=== PATIENT | female | born 1955 | race Caucasian/White ===

== ENCOUNTER 2018-02-27 20:37 | Inpatient (IN) | payer OTHER ==
[2018-02-27] MEDS ORDERED: morphine 2 MG INJ IV (22:00)
[2018-02-27] MEDS ORDERED: NACL 0.9% 3 ML SYG IV (22:00)
[2018-02-27 22:09] LABS: ADD MAN DIFF? NO
[2018-02-27 22:14] LABS: BASOPHILS % 0.2 % (0.0-2.0); HEMATOCRIT 38.2 % (37.0-47.0); LYMPHOCYTES # 1.3 10^3/ul (0.8-2.9); LYMPHOCYTES % 9.6 % (15.0-51.0); MEAN CORPUSCULAR HEMOGLOBIN 29.1 pg (29.0-33.0); MEAN CORPUSCULAR HGB CONC 31.4 g/dl (32.0-37.0); MEAN CORPUSCULAR VOLUME 92.5 fl (82.0-101.0); MEAN PLATELET VOLUME 12.1 fl (7.4-10.4); MONOCYTE # 0.7 10^3/ul (0.3-0.9); MONOCYTES % 5.1 % (0.0-11.0); NEUTROPHIL # 11.2 10^3/ul (1.6-7.5); NEUTROPHILS % 84.7 % (39.0-77.0); PLATELET COUNT 305 10^3/UL (140-415); RED BLOOD COUNT 4.13 10^6/ul (4.20-5.40); RED CELL DISTRIBUTION WIDTH 13.4 % (11.5-14.5)
[2018-02-27 22:14] LABS: WHITE BLOOD COUNT 13.3 10^3/ul (4.8-10.8)
[2018-02-27 22:28] LABS: HEMOGLOBIN A1C 10.5 % (0-5.9)
[2018-02-27 22:30] LABS: ALANINE AMINOTRANSFERASE 26 IU/L (13-69); ALBUMIN 3.5 g/dl (3.3-4.9); ALBUMIN/GLOBULIN RATIO 0.83; ALKALINE PHOSPHATASE 149 IU/L (42-121); ANION GAP 17 (8-16); ASPARTATE AMINO TRANSFERASE 14 IU/L (15-46); BILIRUBIN,INDIRECT 0.3 mg/dl (0-1.1); BILIRUBIN,TOTAL 0.3 mg/dl (0.2-1.3); BLOOD UREA NITROGEN 44 mg/dl (7-20); CALCIUM 9.4 mg/dl (8.4-10.2); CARBON DIOXIDE 27 mmol/L (21-31); CHLORIDE 100 mmol/L (97-110); CREATININE 1.52 mg/dl (0.44-1.00); GLUCOSE 394 mg/dl (70-220); POTASSIUM 4.6 mmol/L (3.5-5.1); SODIUM 139 mmol/L (135-144); TOTAL PROTEIN 7.7 g/dl (6.1-8.1)
[2018-02-27] MEDS ORDERED: PANTOPRAZOLE 40 MG INJ IV ×2 (22:30)
[2018-02-27] MEDS ORDERED: DEXTROSE 50% 50 ML SYRINGE IV ×2 (22:30)
[2018-02-27] MEDS ORDERED: GLUCOSE GEL 15 GRAM TUBE BUCCAL (22:30)
[2018-02-27] MEDS ORDERED: GLUCOSE GEL 15 GRAM TUBE PO ×2 (22:30)
[2018-02-27] MEDS ORDERED: GLUCAGON 1 MG INJ IM (22:30)
[2018-02-27 22:31] LABS: CHOL/HDL RATIO 2.7 RATIO; CHOLESTEROL 180 mg/dl (100-200); HDL CHOLESTEROL 65 mg/dl (35-98); LDL CHOLESTEROL,CALCULATED 89 mg/dl; MAGNESIUM 2.1 mg/dl (1.7-2.5); TRIGLYCERIDES 130 mg/dl (0-149)
[2018-02-27 22:31] LABS: PHOSPHORUS 5.8 mg/dl (2.5-4.9)
[2018-02-27] MEDS: SOD CHLORIDE 0.9% 1,000 ML IV (22:56)
[2018-02-27 23:00] LABS: THYROID STIMULATING HORMONE 0.557 MIU/L (0.465-4.680)
[2018-02-27] MEDS: PANTOPRAZOLE 40 MG INJ IV (23:02)
[2018-02-28] MEDS: INSULIN ASPART [NOVOLOG] 3 ML PEN SC ×6 (00:23→21:26)
[2018-02-28] MEDS ORDERED: INSULIN ASPART [NOVOLOG] 3 ML PEN SC (01:00)
[2018-02-28] MEDS: ONDANSETRON 4 MG INJ IV ×3 (01:23→16:00)
[2018-02-28] MEDS: INSULIN GLARGINE [LANTus] (100 UNITS/ML) SYG SC ×2 (01:28→12:52)
[2018-02-28 03:20] LABS: ADD MAN DIFF? NO
[2018-02-28 03:24] LABS: WHITE BLOOD COUNT 15.4 10^3/ul (4.8-10.8)
[2018-02-28 03:24] LABS: BASOPHILS % 0.1 % (0.0-2.0); HEMATOCRIT 34.5 % (37.0-47.0); LYMPHOCYTES # 1.6 10^3/ul (0.8-2.9); LYMPHOCYTES % 10.1 % (15.0-51.0); MEAN CORPUSCULAR HEMOGLOBIN 29.3 pg (29.0-33.0); MEAN CORPUSCULAR HGB CONC 31.9 g/dl (32.0-37.0); MEAN CORPUSCULAR VOLUME 91.8 fl (82.0-101.0); MEAN PLATELET VOLUME 11.7 fl (7.4-10.4); MONOCYTES % 6.6 % (0.0-11.0); NEUTROPHIL # 12.8 10^3/ul (1.6-7.5); NEUTROPHILS % 82.9 % (39.0-77.0); PLATELET COUNT 286 10^3/UL (140-415); RED BLOOD COUNT 3.76 10^6/ul (4.20-5.40); RED CELL DISTRIBUTION WIDTH 13.7 % (11.5-14.5)
[2018-02-28] MEDS ORDERED: PANTOPRAZOLE 40 MG INJ IV ×2 (06:00)
[2018-02-28] MEDS: PANTOPRAZOLE 40 MG INJ IV ×2 (08:57→17:15)
[2018-02-28] MEDS: SUCRALFATE 1 GM TAB PO ×4 (09:01→23:49)
[2018-02-28 09:35] LABS: ADD MAN DIFF? NO
[2018-02-28 09:36] LABS: BASOPHILS % 0.2 % (0.0-2.0); HEMATOCRIT 36.1 % (37.0-47.0); HEMOGLOBIN 11.5 g/dl (12.0-16.0); LYMPHOCYTES # 1.4 10^3/ul (0.8-2.9); LYMPHOCYTES % 9.2 % (15.0-51.0); MEAN CORPUSCULAR HEMOGLOBIN 29.3 pg (29.0-33.0); MEAN CORPUSCULAR HGB CONC 31.9 g/dl (32.0-37.0); MEAN CORPUSCULAR VOLUME 92.1 fl (82.0-101.0); MEAN PLATELET VOLUME 11.9 fl (7.4-10.4); MONOCYTE # 0.7 10^3/ul (0.3-0.9); MONOCYTES % 4.7 % (0.0-11.0); NEUTROPHIL # 12.9 10^3/ul (1.6-7.5); NEUTROPHILS % 85.5 % (39.0-77.0); PLATELET COUNT 280 10^3/UL (140-415); RED BLOOD COUNT 3.92 10^6/ul (4.20-5.40); RED CELL DISTRIBUTION WIDTH 13.5 % (11.5-14.5)
[2018-02-28 09:36] LABS: WHITE BLOOD COUNT 15.1 10^3/ul (4.8-10.8)
[2018-02-28] MEDS ORDERED: DIPHENHYDRAMINE 50 MG INJ IV (11:00)
[2018-02-28] MEDS: SOD CHLORIDE 0.9% 1,000 ML IV ×2 (11:55→22:35)
[2018-02-28] MEDS: METOCLOPRAMIDE 10 MG INJ IV ×3 (11:55→23:49)
[2018-02-28] MEDS: CEFTRIAXONE 1 GM/50 ML (PMX) 50 ML IVPB (11:55)
[2018-02-28 12:00] LABS: ALANINE AMINOTRANSFERASE 19 IU/L (13-69); ALBUMIN 3.2 g/dl (3.3-4.9); ALBUMIN/GLOBULIN RATIO 0.76; ALKALINE PHOSPHATASE 131 IU/L (42-121); ANION GAP 14 (8-16); ASPARTATE AMINO TRANSFERASE 18 IU/L (15-46); BILIRUBIN,INDIRECT 0.3 mg/dl (0-1.1); BILIRUBIN,TOTAL 0.3 mg/dl (0.2-1.3); BLOOD UREA NITROGEN 43 mg/dl (7-20); CALCIUM 8.7 mg/dl (8.4-10.2); CARBON DIOXIDE 26 mmol/L (21-31); CHLORIDE 103 mmol/L (97-110); CREATININE 1.14 mg/dl (0.44-1.00); GLUCOSE 283 mg/dl (70-220); POTASSIUM 3.8 mmol/L (3.5-5.1); SODIUM 139 mmol/L (135-144); TOTAL PROTEIN 7.4 g/dl (6.1-8.1)
[2018-02-28 12:06] LABS: INR 0.99; PROTIME 13.2 Sec (11.9-14.9)
[2018-02-28 12:07] LABS: PARTIAL THROMBOPLASTIN TIME 30.9 Sec (23.0-35.0)
[2018-02-28 14:12] LABS: ADD UMIC YES; UR ASCORBIC ACID NEGATIVE (NEGATIVE); UR BACTERIA FEW /HPF (NONE SEEN); UR BILIRUBIN (Dip) NEGATIVE (NEGATIVE); UR BLOOD (Dip) 3+ mg/dL (NEGATIVE); UR CLARITY SLIGHTLY CLOUDY (CLEAR); UR COLOR YELLOW (YELLOW); UR GLUCOSE (Dip) 3+ mg/dL (NEGATIVE); UR KETONES (Dip) TRACE mg/dL (NEGATIVE); UR LEUKOCYTE ESTERASE (Dip) TRACE Leu/ul (NEGATIVE); UR NITRITE (Dip) NEGATIVE (NEGATIVE); UR RBC 143 /HPF (0-5); UR SPECIFIC GRAVITY (Dip) 1.015 (1.003-1.030); UR SQUAMOUS EPITHELIAL CELL FEW /HPF (FEW); UR TOTAL PROTEIN (Dip) 2+ mg/dl (NEGATIVE); UR UROBILINOGEN (Dip) NEGATIVE (NEGATIVE); UR WBC 69 /HPF (0-5)
[2018-02-28 14:39] LABS: AMPHETAMINE/METHAMPHETAMINE Negative (NEGATIVE); BENZODIAZEPINES Negative (NEGATIVE); CANNABINOIDS Negative (NEGATIVE); COCAINE Negative (NEGATIVE); OPIATES Negative (NEGATIVE)
[2018-02-28 14:57] LABS: BARBITURATES Negative (NEGATIVE)
[2018-02-28] MEDS: PROPOFOL 20 ML (16:14)
[2018-02-28] MEDS: hydrALAzine 20 MG INJ IV (17:16)
[2018-02-28 17:54] LABS: ADD MAN DIFF? NO
[2018-02-28 17:57] LABS: WHITE BLOOD COUNT 15.8 10^3/ul (4.8-10.8)
[2018-02-28 17:57] LABS: BASOPHILS % 0.3 % (0.0-2.0); HEMOGLOBIN 11.7 g/dl (12.0-16.0); LYMPHOCYTES # 1.7 10^3/ul (0.8-2.9); LYMPHOCYTES % 10.5 % (15.0-51.0); MEAN CORPUSCULAR HEMOGLOBIN 29.5 pg (29.0-33.0); MEAN CORPUSCULAR HGB CONC 31.6 g/dl (32.0-37.0); MEAN CORPUSCULAR VOLUME 93.2 fl (82.0-101.0); MEAN PLATELET VOLUME 11.9 fl (7.4-10.4); MONOCYTE # 0.9 10^3/ul (0.3-0.9); MONOCYTES % 5.5 % (0.0-11.0); NEUTROPHIL # 13.2 10^3/ul (1.6-7.5); NEUTROPHILS % 83.3 % (39.0-77.0); PLATELET COUNT 289 10^3/UL (140-415); RED BLOOD COUNT 3.97 10^6/ul (4.20-5.40); RED CELL DISTRIBUTION WIDTH 13.4 % (11.5-14.5)
[2018-02-28 22:29] LABS: ADD MAN DIFF? NO
[2018-02-28 22:31] LABS: WHITE BLOOD COUNT 14.2 10^3/ul (4.8-10.8)
[2018-02-28 22:31] LABS: BASOPHILS % 0.2 % (0.0-2.0); EOSINOPHILS % 0.1 % (0.0-7.0); HEMATOCRIT 36.1 % (37.0-47.0); HEMOGLOBIN 11.3 g/dl (12.0-16.0); LYMPHOCYTES # 1.4 10^3/ul (0.8-2.9); LYMPHOCYTES % 9.8 % (15.0-51.0); MEAN CORPUSCULAR HEMOGLOBIN 29.2 pg (29.0-33.0); MEAN CORPUSCULAR HGB CONC 31.3 g/dl (32.0-37.0); MEAN CORPUSCULAR VOLUME 93.3 fl (82.0-101.0); MONOCYTE # 0.6 10^3/ul (0.3-0.9); MONOCYTES % 3.9 % (0.0-11.0); NEUTROPHIL # 12.2 10^3/ul (1.6-7.5); NEUTROPHILS % 85.4 % (39.0-77.0); PLATELET COUNT 298 10^3/UL (140-415); RED BLOOD COUNT 3.87 10^6/ul (4.20-5.40); RED CELL DISTRIBUTION WIDTH 13.4 % (11.5-14.5)
[2018-03-01] MEDS: INSULIN ASPART [NOVOLOG] 3 ML PEN SC ×2 (01:42→06:01)
[2018-03-01] MEDS: SOD CHLORIDE 0.9% 1,000 ML IV (02:31)
[2018-03-01 05:16] LABS: ADD MAN DIFF? NO
[2018-03-01 05:22] LABS: WHITE BLOOD COUNT 12.9 10^3/ul (4.8-10.8)
[2018-03-01 05:22] LABS: BASOPHILS % 0.2 % (0.0-2.0); EOSINOPHILS % 0.1 % (0.0-7.0); HEMOGLOBIN 12.1 g/dl (12.0-16.0); LYMPHOCYTES # 2.1 10^3/ul (0.8-2.9); MEAN CORPUSCULAR HEMOGLOBIN 28.9 pg (29.0-33.0); MEAN CORPUSCULAR VOLUME 93.3 fl (82.0-101.0); MEAN PLATELET VOLUME 11.8 fl (7.4-10.4); MONOCYTE # 0.7 10^3/ul (0.3-0.9); MONOCYTES % 5.1 % (0.0-11.0); NEUTROPHILS % 77.9 % (39.0-77.0); PLATELET COUNT 311 10^3/UL (140-415); RED BLOOD COUNT 4.18 10^6/ul (4.20-5.40); RED CELL DISTRIBUTION WIDTH 13.5 % (11.5-14.5)
[2018-03-01 05:36] LABS: ALANINE AMINOTRANSFERASE 11 IU/L (13-69); ALBUMIN 3.3 g/dl (3.3-4.9); ALBUMIN/GLOBULIN RATIO 0.75; ALKALINE PHOSPHATASE 131 IU/L (42-121); ANION GAP 13 (8-16); ASPARTATE AMINO TRANSFERASE 22 IU/L (15-46); BILIRUBIN,INDIRECT 0.3 mg/dl (0-1.1); BILIRUBIN,TOTAL 0.3 mg/dl (0.2-1.3); BLOOD UREA NITROGEN 35 mg/dl (7-20); CALCIUM 8.8 mg/dl (8.4-10.2); CARBON DIOXIDE 28 mmol/L (21-31); CHLORIDE 102 mmol/L (97-110); CREATININE 1.13 mg/dl (0.44-1.00); GLUCOSE 204 mg/dl (70-220); POTASSIUM 3.7 mmol/L (3.5-5.1); SODIUM 139 mmol/L (135-144); TOTAL PROTEIN 7.7 g/dl (6.1-8.1)
[2018-03-01 05:45] LABS: PHOSPHORUS 3.7 mg/dl (2.5-4.9)
[2018-03-01 05:45] LABS: MAGNESIUM 2.2 mg/dl (1.7-2.5)
[2018-03-01 05:46] LABS: LACTIC ACID 1.2 mmol/L (0.5-2.0)
[2018-03-01] MEDS: PANTOPRAZOLE 40 MG INJ IV ×2 (05:57→18:23)
[2018-03-01] MEDS: METOCLOPRAMIDE 10 MG INJ IV ×3 (05:57→18:23)
[2018-03-01] MEDS: SUCRALFATE 1 GM TAB PO ×3 (05:57→18:23)
[2018-03-01] MEDS ORDERED: ALBUTEROL 0.083% (NEB) 2.5 MG/3 ML AMP HHN (09:00)
[2018-03-01] MEDS ORDERED: CEPASTAT LOZENGE MT (09:30)
[2018-03-01] MEDS ORDERED: INSULIN ASPART [NOVOLOG] 3 ML PEN SC (11:10)
[2018-03-01] MEDS: LISINOPRIL 5 MG TAB PO (11:37)
[2018-03-01] MEDS: CEFTRIAXONE 1 GM/50 ML (PMX) 50 ML IVPB (11:37)
[2018-03-01] MEDS: INSULIN GLARGINE [LANTus] (100 UNITS/ML) SYG SC (11:40)
[2018-03-01] MEDS: Insulin NOVOLOG SS MILD Algorithm (SS with meals and bedtime) SC ×4 (11:41→21:00)
[2018-03-02] MEDS: SUCRALFATE 1 GM TAB PO ×3 (00:32→13:12)
[2018-03-02] MEDS: METOCLOPRAMIDE 10 MG INJ IV ×4 (00:32→12:30)
[2018-03-02] MEDS: PANTOPRAZOLE 40 MG INJ IV (05:09)
[2018-03-02 05:31] LABS: ADD MAN DIFF? NO
[2018-03-02 05:33] LABS: BASOPHILS % 0.3 % (0.0-2.0); EOSINOPHILS % 0.3 % (0.0-7.0); HEMATOCRIT 35.6 % (37.0-47.0); HEMOGLOBIN 11.1 g/dl (12.0-16.0); LYMPHOCYTES % 18.4 % (15.0-51.0); MEAN CORPUSCULAR HGB CONC 31.2 g/dl (32.0-37.0); MONOCYTE # 0.8 10^3/ul (0.3-0.9); MONOCYTES % 7.5 % (0.0-11.0); NEUTROPHIL # 7.8 10^3/ul (1.6-7.5); NEUTROPHILS % 73.1 % (39.0-77.0); PLATELET COUNT 276 10^3/UL (140-415); RED BLOOD COUNT 3.83 10^6/ul (4.20-5.40); RED CELL DISTRIBUTION WIDTH 13.1 % (11.5-14.5)
[2018-03-02 05:33] LABS: WHITE BLOOD COUNT 10.7 10^3/ul (4.8-10.8)
[2018-03-02 05:53] LABS: MAGNESIUM 2.2 mg/dl (1.7-2.5)
[2018-03-02 05:53] LABS: PHOSPHORUS 3.2 mg/dl (2.5-4.9)
[2018-03-02 05:56] LABS: ALANINE AMINOTRANSFERASE 14 IU/L (13-69); ALBUMIN 2.7 g/dl (3.3-4.9); ALBUMIN/GLOBULIN RATIO 0.71; ALKALINE PHOSPHATASE 104 IU/L (42-121); ANION GAP 12 (8-16); ASPARTATE AMINO TRANSFERASE 18 IU/L (15-46); BILIRUBIN,INDIRECT 0.2 mg/dl (0-1.1); BILIRUBIN,TOTAL 0.2 mg/dl (0.2-1.3); BLOOD UREA NITROGEN 34 mg/dl (7-20); CALCIUM 8.6 mg/dl (8.4-10.2); CARBON DIOXIDE 28 mmol/L (21-31); CHLORIDE 101 mmol/L (97-110); CREATININE 1.14 mg/dl (0.44-1.00); GLUCOSE 201 mg/dl (70-220); POTASSIUM 3.7 mmol/L (3.5-5.1); SODIUM 137 mmol/L (135-144); TOTAL PROTEIN 6.5 g/dl (6.1-8.1)
[2018-03-02] MEDS: Insulin NOVOLOG SS MILD Algorithm (SS with meals and bedtime) SC ×2 (09:04→13:12)
[2018-03-02] MEDS: INSULIN GLARGINE [LANTus] (100 UNITS/ML) SYG SC (09:05)
[2018-03-02] MEDS: LISINOPRIL 5 MG TAB PO (09:07)
[2018-03-02] MEDS: CEFTRIAXONE 1 GM/50 ML (PMX) 50 ML IVPB (10:50)
[2018-03-02 12:07] LABS: ADD UMIC YES; UR ASCORBIC ACID NEGATIVE (NEGATIVE); UR BILIRUBIN (Dip) NEGATIVE (NEGATIVE); UR BLOOD (Dip) 3+ mg/dL (NEGATIVE); UR CLARITY CLOUDY (CLEAR); UR COLOR YELLOW (YELLOW); UR GLUCOSE (Dip) 2+ mg/dL (NEGATIVE); UR KETONES (Dip) TRACE mg/dL (NEGATIVE); UR LEUKOCYTE ESTERASE (Dip) 2+ Leu/ul (NEGATIVE); UR MUCUS FEW /HPF (NONE SEEN); UR NITRITE (Dip) NEGATIVE (NEGATIVE); UR RBC > 182 /HPF (0-5); UR SPECIFIC GRAVITY (Dip) 1.018 (1.003-1.030); UR TOTAL PROTEIN (Dip) 3+ mg/dl (NEGATIVE); UR URIC ACID CRYSTAL FEW /HPF (NONE SEEN); UR UROBILINOGEN (Dip) NEGATIVE (NEGATIVE); UR WBC 181 /HPF (0-5)
== END 2018-03-02 14:45 | disposition home or self-care (01) | DRG 378 ==
LOC: MS1 20:37
PROVIDERS: Family Medicine
PROC: 0DB98ZX Excision of Duodenum, Via Natural or Artificial Opening Endoscopic, Diagnostic (ICD-10-PCS; principal; 2018-02-28 14:30)
PROC: 0DB68ZX Excision of Stomach, Via Natural or Artificial Opening Endoscopic, Diagnostic (ICD-10-PCS; 2018-02-28 14:30)
PROC: 0DB58ZX Excision of Esophagus, Via Natural or Artificial Opening Endoscopic, Diagnostic (ICD-10-PCS; 2018-02-28 14:30)
DX: K92.0 Hematemesis (principal); N17.9 Acute kidney failure, unspecified; K29.70 Gastritis, unspecified, without bleeding; E11.9 Type 2 diabetes mellitus without complications; I10 Essential (primary) hypertension; N30.80 Other cystitis without hematuria; J44.9 Chronic obstructive pulmonary disease, unspecified; E66.9 Obesity, unspecified; R19.7 Diarrhea, unspecified; K21.0 Gastro-esophageal reflux disease with esophagitis; E78.5 Hyperlipidemia, unspecified; Z79.4 Long term (current) use of insulin; Z86.73 Personal history of transient ischemic attack (TIA), and cerebral infarction without residual deficits; Z68.35 Body mass index [BMI] 35.0-35.9, adult
CPT/HCPCS: 74176; 80053; 80061; 80307; 81001; 82962; 83036; 83605; 83735; 84100; 84443; 85025; 85610; 85730; 87086

== ENCOUNTER 2018-08-03 20:54 | Inpatient (IN) | payer OTHER ==
[2018-08-03] MEDS: DOCUSATE SODIUM 100 MG CAP PO (22:00)
[2018-08-03] MEDS ORDERED: ONDANSETRON 4 MG INJ IV (22:00)
[2018-08-03] MEDS ORDERED: AMOXICILLIN/CLAV 250 MG TAB PO ×2 (22:00→22:45)
[2018-08-03] MEDS: SENNA TAB PO (22:00)
[2018-08-03] MEDS ORDERED: oxyCODONE 5 MG TAB PO (22:00)
[2018-08-03] MEDS ORDERED: POLYETHYLENE GLYCOL 17 GM PACKET NGT (22:30)
[2018-08-03] MEDS: LABETALOL 200 MG TAB PO (22:49)
[2018-08-03] MEDS: HEPARIN 5,000 UNIT/1 ML VIAL SC (22:50)
[2018-08-03] MEDS: ACCU-CHEK XX (23:21)
[2018-08-03] MEDS ORDERED: GLUCOSE GEL 15 GRAM TUBE PO (23:30)
[2018-08-03] MEDS ORDERED: GLUCAGON 1 MG INJ IM (23:30)
[2018-08-03] MEDS ORDERED: GLUCOSE GEL 15 GRAM TUBE BUCCAL (23:30)
[2018-08-03] MEDS: AMOXICILLIN/CLAV 875 MG TAB PO (23:30)
[2018-08-03] MEDS ORDERED: DEXTROSE 50% 50 ML SYRINGE IV ×2 (23:30)
[2018-08-03] MEDS: INSULIN ASPART [NOVOLOG] 3 ML PEN SC (23:31)
[2018-08-04] MEDS ORDERED: BISACODYL 10 MG SUPP PR
[2018-08-04] MEDS ORDERED: PENDING SANTYL ORDER FOR WOUND CARE XX
[2018-08-04 01:19] LABS: ADD UMIC YES; UR ASCORBIC ACID NEGATIVE (NEGATIVE); UR BACTERIA FEW /HPF (NONE SEEN); UR BILIRUBIN (Dip) NEGATIVE (NEGATIVE); UR BLOOD (Dip) NEGATIVE (NEGATIVE); UR BUDDING YEAST MODERATE /HPF (NONE SEEN); UR CLARITY SLIGHTLY CLOUDY (CLEAR); UR COLOR STRAW (YELLOW); UR GLUCOSE (Dip) 3+ mg/dL (NEGATIVE); UR KETONES (Dip) NEGATIVE (NEGATIVE); UR LEUKOCYTE ESTERASE (Dip) TRACE Leu/ul (NEGATIVE); UR MUCUS FEW /HPF (NONE SEEN); UR NITRITE (Dip) NEGATIVE (NEGATIVE); UR NONSQUAMOUS EPITHELIAL CELL 1 /HPF (NONE SEEN); UR RBC 6 /HPF (0-5); UR SPECIFIC GRAVITY (Dip) 1.009 (1.003-1.030); UR SQUAMOUS EPITHELIAL CELL FEW /HPF (FEW); UR TOTAL PROTEIN (Dip) 2+ mg/dl (NEGATIVE); UR UROBILINOGEN (Dip) NEGATIVE (NEGATIVE); UR WBC 34 /HPF (0-5)
[2018-08-04] MEDS: ACCU-CHEK XX ×5 (02:00→21:06)
[2018-08-04] MEDS: LABETALOL 100 MG TAB PO (04:55)
[2018-08-04] MEDS: HEPARIN 5,000 UNIT/1 ML VIAL SC ×3 (06:28→22:44)
[2018-08-04] MEDS ORDERED: ACCU-CHEK XX ×2 (07:05→11:30)
[2018-08-04 07:24] LABS: ADD MAN DIFF? NO
[2018-08-04 07:29] LABS: WHITE BLOOD COUNT 8.7 10^3/ul (4.8-10.8)
[2018-08-04 07:29] LABS: BASOPHILS % 0.3 % (0.0-2.0); EOSINOPHILS # 0.4 10^3/ul (0.0-0.5); HEMATOCRIT 34.9 % (37.0-47.0); HEMOGLOBIN 10.6 g/dl (12.0-16.0); LYMPHOCYTES # 1.5 10^3/ul (0.8-2.9); LYMPHOCYTES % 16.9 % (15.0-51.0); MEAN CORPUSCULAR HGB CONC 30.4 g/dl (32.0-37.0); MEAN CORPUSCULAR VOLUME 95.4 fl (82.0-101.0); MEAN PLATELET VOLUME 10.5 fl (7.4-10.4); MONOCYTE # 0.6 10^3/ul (0.3-0.9); MONOCYTES % 7.2 % (0.0-11.0); NEUTROPHIL # 6.1 10^3/ul (1.6-7.5); NEUTROPHILS % 70.8 % (39.0-77.0); PLATELET COUNT 428 10^3/UL (140-415); RED BLOOD COUNT 3.66 10^6/ul (4.20-5.40)
[2018-08-04 07:44] LABS: HEMOGLOBIN A1C 8.9 % (0-5.9)
[2018-08-04 08:07] LABS: ALANINE AMINOTRANSFERASE 7 IU/L (13-69); ALBUMIN 2.7 g/dl (3.3-4.9); ALBUMIN/GLOBULIN RATIO 0.79; ALKALINE PHOSPHATASE 103 IU/L (42-121); ANION GAP 7 (5-13); ASPARTATE AMINO TRANSFERASE 16 IU/L (15-46); BILIRUBIN,INDIRECT 0.2 mg/dl (0-1.1); BILIRUBIN,TOTAL 0.2 mg/dl (0.2-1.3); BLOOD UREA NITROGEN 11 mg/dl (7-20); CALCIUM 8.3 mg/dl (8.4-10.2); CARBON DIOXIDE 29 mmol/L (21-31); CHLORIDE 102 mmol/L (97-110); CREATININE 1.31 mg/dl (0.44-1.00); Estimated GFR 41 mL/min (>60); GLUCOSE 303 mg/dl (70-220); POTASSIUM 4.1 mmol/L (3.5-5.1); SODIUM 138 mmol/L (135-144); TOTAL PROTEIN 6.1 g/dl (6.1-8.1)
[2018-08-04] MEDS: LINAGLIPTIN 5 MG TABLET PO (08:20)
[2018-08-04] MEDS: INSULIN ASPART [NOVOLOG] 3 ML PEN SC ×4 (08:20→21:00)
[2018-08-04] MEDS: INSULIN GLARGINE [LANTus] (100 UNITS/ML) SYG SC (08:28)
[2018-08-04] MEDS: AMOXICILLIN/CLAV 875 MG TAB PO ×2 (08:30→20:58)
[2018-08-04] MEDS: GABAPENTIN 300 MG CAP PO ×3 (08:39→20:58)
[2018-08-04] MEDS: DOCUSATE SODIUM 100 MG CAP PO ×2 (08:40→20:58)
[2018-08-04] MEDS: ASPIRIN 81 MG TAB PO (08:40)
[2018-08-04] MEDS: AMLODIPINE 10 MG TAB PO (08:40)
[2018-08-04] MEDS: ASCORBIC ACID 500 MG TAB PO (08:41)
[2018-08-04] MEDS: FAMOTIDINE 20 MG TAB PO (08:41)
[2018-08-04] MEDS: LACTOBACILLUS RHAMNOSUS CAP PO ×3 (08:41→20:58)
[2018-08-04] MEDS: FERROUS SULFATE (EC) 325 MG TAB PO (08:41)
[2018-08-04] MEDS: FOLIC ACID 1 MG TAB PO (08:41)
[2018-08-04] MEDS: LABETALOL 200 MG TAB PO ×3 (08:41→22:43)
[2018-08-04] MEDS ORDERED: AMOXICILLIN/CLAV 250 MG TAB PO (09:00)
[2018-08-04] MEDS: NYSTATIN 30 GM POWDER BTL TOP ×2 (09:47→20:59)
[2018-08-04] MEDS: HYDROmorphONE 0.5 MG/0.5 ML SYG IV ×3 (11:24→19:25)
[2018-08-04] MEDS: SENNA TAB PO (20:58)
[2018-08-04] MEDS: ATORVASTATIN 40 MG TAB PO (20:58)
[2018-08-05] MEDS: ACCU-CHEK XX ×5 (02:00→21:00)
[2018-08-05] MEDS: DIPHENHYDRAMINE 25 MG CAP PO (03:18)
[2018-08-05] MEDS: HEPARIN 5,000 UNIT/1 ML VIAL SC ×3 (06:49→21:01)
[2018-08-05] MEDS: LABETALOL 200 MG TAB PO ×3 (06:50→20:44)
[2018-08-05] MEDS: INSULIN ASPART [NOVOLOG] 3 ML PEN SC ×6 (08:30→20:54)
[2018-08-05] MEDS: LINAGLIPTIN 5 MG TABLET PO (08:30)
[2018-08-05] MEDS: GABAPENTIN 300 MG CAP PO ×3 (08:34→20:40)
[2018-08-05] MEDS: FOLIC ACID 1 MG TAB PO (08:35)
[2018-08-05] MEDS: ASPIRIN 81 MG TAB PO (08:35)
[2018-08-05] MEDS: AMLODIPINE 10 MG TAB PO (08:35)
[2018-08-05] MEDS: INSULIN GLARGINE [LANTus] (100 UNITS/ML) SYG SC (08:37)
[2018-08-05] MEDS: ASCORBIC ACID 500 MG TAB PO (08:37)
[2018-08-05] MEDS: LACTOBACILLUS RHAMNOSUS CAP PO ×3 (08:37→20:40)
[2018-08-05] MEDS: FAMOTIDINE 20 MG TAB PO (08:37)
[2018-08-05] MEDS: AMOXICILLIN/CLAV 875 MG TAB PO ×2 (08:37→20:40)
[2018-08-05] MEDS: FERROUS SULFATE (EC) 325 MG TAB PO (08:37)
[2018-08-05] MEDS: DOCUSATE SODIUM 100 MG CAP PO ×2 (09:00→21:00)
[2018-08-05] MEDS: NYSTATIN 30 GM POWDER BTL TOP ×2 (10:08→20:44)
[2018-08-05] MEDS: ATORVASTATIN 40 MG TAB PO (20:40)
[2018-08-05] MEDS: SENNA TAB PO (21:00)
[2018-08-06] MEDS: ACCU-CHEK XX ×5 (02:14→21:00)
[2018-08-06] MEDS: LABETALOL 200 MG TAB PO ×3 (05:42→22:00)
[2018-08-06] MEDS: HEPARIN 5,000 UNIT/1 ML VIAL SC ×3 (06:04→22:00)
[2018-08-06 07:24] LABS: ADD MAN DIFF? NO
[2018-08-06 07:30] LABS: BASOPHILS % 0.5 % (0.0-2.0); EOSINOPHILS # 0.4 10^3/ul (0.0-0.5); EOSINOPHILS % 5.4 % (0.0-7.0); HEMATOCRIT 35.9 % (37.0-47.0); LYMPHOCYTES # 1.6 10^3/ul (0.8-2.9); LYMPHOCYTES % 20.4 % (15.0-51.0); MEAN CORPUSCULAR HEMOGLOBIN 28.9 pg (29.0-33.0); MEAN CORPUSCULAR HGB CONC 30.6 g/dl (32.0-37.0); MEAN CORPUSCULAR VOLUME 94.5 fl (82.0-101.0); MEAN PLATELET VOLUME 10.2 fl (7.4-10.4); MONOCYTE # 0.6 10^3/ul (0.3-0.9); MONOCYTES % 7.3 % (0.0-11.0); NEUTROPHIL # 5.3 10^3/ul (1.6-7.5); NEUTROPHILS % 65.8 % (39.0-77.0); PLATELET COUNT 426 10^3/UL (140-415); RED CELL DISTRIBUTION WIDTH 15.1 % (11.5-14.5)
[2018-08-06 07:47] LABS: ANION GAP 8 (5-13); BLOOD UREA NITROGEN 18 mg/dl (7-20); CALCIUM 8.1 mg/dl (8.4-10.2); CARBON DIOXIDE 30 mmol/L (21-31); CHLORIDE 97 mmol/L (97-110); CREATININE 1.25 mg/dl (0.44-1.00); Estimated GFR 44 mL/min (>60); GLUCOSE 251 mg/dl (70-220); MAGNESIUM 1.7 mg/dl (1.7-2.5); PHOSPHORUS 4.6 mg/dl (2.5-4.9); POTASSIUM 3.8 mmol/L (3.5-5.1); SODIUM 135 mmol/L (135-144)
[2018-08-06] MEDS: INSULIN ASPART [NOVOLOG] 3 ML PEN SC ×7 (08:18→22:29)
[2018-08-06] MEDS: INSULIN GLARGINE [LANTus] (100 UNITS/ML) SYG SC (08:24)
[2018-08-06] MEDS: LINAGLIPTIN 5 MG TABLET PO (08:25)
[2018-08-06] MEDS: FAMOTIDINE 20 MG TAB PO (08:25)
[2018-08-06] MEDS: AMOXICILLIN/CLAV 875 MG TAB PO (08:25)
[2018-08-06] MEDS: ASCORBIC ACID 500 MG TAB PO (08:25)
[2018-08-06] MEDS: FOLIC ACID 1 MG TAB PO (08:25)
[2018-08-06] MEDS: LACTOBACILLUS RHAMNOSUS CAP PO ×3 (08:25→21:00)
[2018-08-06] MEDS: GABAPENTIN 300 MG CAP PO ×3 (08:25→21:00)
[2018-08-06] MEDS: FERROUS SULFATE (EC) 325 MG TAB PO (08:25)
[2018-08-06] MEDS: DOCUSATE SODIUM 100 MG CAP PO ×2 (08:26→21:00)
[2018-08-06] MEDS: NYSTATIN 30 GM POWDER BTL TOP ×2 (08:26→21:00)
[2018-08-06] MEDS: ASPIRIN 81 MG TAB PO (08:26)
[2018-08-06] MEDS: AMLODIPINE 10 MG TAB PO (09:00)
[2018-08-06] MEDS: ATORVASTATIN 40 MG TAB PO (21:00)
[2018-08-06] MEDS: SENNA TAB PO (21:00)
[2018-08-07] MEDS: ACCU-CHEK XX ×5 (02:45→21:00)
[2018-08-07] MEDS: LABETALOL 200 MG TAB PO ×3 (07:09→22:25)
[2018-08-07] MEDS: HEPARIN 5,000 UNIT/1 ML VIAL SC ×3 (07:12→22:21)
[2018-08-07] MEDS ORDERED: INSULIN GLARGINE [LANTus] (100 UNITS/ML) SYG SC (08:00)
[2018-08-07] MEDS: INSULIN ASPART [NOVOLOG] 3 ML PEN SC ×6 (08:53→20:48)
[2018-08-07] MEDS: GABAPENTIN 300 MG CAP PO ×3 (08:55→22:24)
[2018-08-07] MEDS: ASCORBIC ACID 500 MG TAB PO (08:55)
[2018-08-07] MEDS: LACTOBACILLUS RHAMNOSUS CAP PO ×3 (08:55→22:36)
[2018-08-07] MEDS: ASPIRIN 81 MG TAB PO (08:55)
[2018-08-07] MEDS: FOLIC ACID 1 MG TAB PO (08:55)
[2018-08-07] MEDS: FAMOTIDINE 20 MG TAB PO (08:55)
[2018-08-07] MEDS: FERROUS SULFATE (EC) 325 MG TAB PO (08:55)
[2018-08-07] MEDS: AMLODIPINE 10 MG TAB PO (08:56)
[2018-08-07] MEDS: LINAGLIPTIN 5 MG TABLET PO (08:56)
[2018-08-07] MEDS: DOCUSATE SODIUM 100 MG CAP PO ×2 (09:00→21:00)
[2018-08-07] MEDS: NYSTATIN 30 GM POWDER BTL TOP ×2 (09:01→22:30)
[2018-08-07] MEDS: ERGOCALCIFEROL 50,000 UNIT CAP PO (10:34)
[2018-08-07] MEDS: SENNA TAB PO (21:00)
[2018-08-07] MEDS: ATORVASTATIN 40 MG TAB PO (22:24)
[2018-08-08] MEDS: ACCU-CHEK XX ×5 (02:00→21:41)
[2018-08-08] MEDS: LABETALOL 200 MG TAB PO ×3 (08:00→21:46)
[2018-08-08] MEDS ORDERED: INSULIN GLARGINE [LANTus] (100 UNITS/ML) SYG SC (08:00)
[2018-08-08] MEDS: INSULIN ASPART [NOVOLOG] 3 ML PEN SC ×7 (08:02→21:40)
[2018-08-08] MEDS: HYDROmorphONE 0.5 MG/0.5 ML SYG IV ×3 (08:48→18:15)
[2018-08-08] MEDS: DOCUSATE SODIUM 100 MG CAP PO ×2 (08:55→21:00)
[2018-08-08] MEDS: GABAPENTIN 300 MG CAP PO ×3 (08:55→21:32)
[2018-08-08] MEDS: HEPARIN 5,000 UNIT/1 ML VIAL SC ×3 (08:55→21:47)
[2018-08-08] MEDS: FAMOTIDINE 20 MG TAB PO (08:56)
[2018-08-08] MEDS: LACTOBACILLUS RHAMNOSUS CAP PO ×3 (08:56→21:32)
[2018-08-08] MEDS: AMLODIPINE 10 MG TAB PO (08:56)
[2018-08-08] MEDS: ASCORBIC ACID 500 MG TAB PO (08:56)
[2018-08-08] MEDS: ASPIRIN 81 MG TAB PO (08:56)
[2018-08-08] MEDS: FOLIC ACID 1 MG TAB PO (08:56)
[2018-08-08] MEDS: FERROUS SULFATE (EC) 325 MG TAB PO (08:56)
[2018-08-08] MEDS: LINAGLIPTIN 5 MG TABLET PO (08:59)
[2018-08-08] MEDS: LISINOPRIL 10 MG TAB PO (09:30)
[2018-08-08] MEDS: NYSTATIN 30 GM POWDER BTL TOP ×2 (12:12→21:42)
[2018-08-08] MEDS: SENNA TAB PO (21:00)
[2018-08-08] MEDS: ATORVASTATIN 40 MG TAB PO (21:32)
[2018-08-09] MEDS: ACCU-CHEK XX ×5 (02:40→21:25)
[2018-08-09] MEDS: LABETALOL 200 MG TAB PO ×3 (06:46→22:36)
[2018-08-09] MEDS: HEPARIN 5,000 UNIT/1 ML VIAL SC ×3 (06:49→21:26)
[2018-08-09 07:28] LABS: ADD MAN DIFF? NO
[2018-08-09 07:33] LABS: WHITE BLOOD COUNT 7.2 10^3/ul (4.8-10.8)
[2018-08-09 07:33] LABS: BASOPHILS % 0.4 % (0.0-2.0); EOSINOPHILS # 0.5 10^3/ul (0.0-0.5); EOSINOPHILS % 6.9 % (0.0-7.0); HEMATOCRIT 32.8 % (37.0-47.0); HEMOGLOBIN 9.9 g/dl (12.0-16.0); LYMPHOCYTES # 1.8 10^3/ul (0.8-2.9); LYMPHOCYTES % 24.3 % (15.0-51.0); MEAN CORPUSCULAR HEMOGLOBIN 28.9 pg (29.0-33.0); MEAN CORPUSCULAR HGB CONC 30.2 g/dl (32.0-37.0); MEAN CORPUSCULAR VOLUME 95.9 fl (82.0-101.0); MEAN PLATELET VOLUME 10.6 fl (7.4-10.4); MONOCYTE # 0.8 10^3/ul (0.3-0.9); MONOCYTES % 10.4 % (0.0-11.0); NEUTROPHIL # 4.2 10^3/ul (1.6-7.5); NEUTROPHILS % 57.6 % (39.0-77.0); PLATELET COUNT 330 10^3/UL (140-415); RED BLOOD COUNT 3.42 10^6/ul (4.20-5.40); RED CELL DISTRIBUTION WIDTH 15.1 % (11.5-14.5)
[2018-08-09 08:04] LABS: ANION GAP 5 (5-13); BLOOD UREA NITROGEN 25 mg/dl (7-20); CALCIUM 8.6 mg/dl (8.4-10.2); CARBON DIOXIDE 32 mmol/L (21-31); CHLORIDE 104 mmol/L (97-110); CREATININE 1.53 mg/dl (0.44-1.00); Estimated GFR 35 mL/min (>60); GLUCOSE 188 mg/dl (70-220); MAGNESIUM 1.9 mg/dl (1.7-2.5); PHOSPHORUS 4.6 mg/dl (2.5-4.9); SODIUM 141 mmol/L (135-144)
[2018-08-09] MEDS: INSULIN ASPART [NOVOLOG] 3 ML PEN SC ×7 (08:19→21:00)
[2018-08-09] MEDS: INSULIN GLARGINE [LANTus] (100 UNITS/ML) SYG SC (08:21)
[2018-08-09] MEDS: HYDROmorphONE 0.5 MG/0.5 ML SYG IV ×3 (08:22→17:55)
[2018-08-09] MEDS: LACTULOSE 30ML CUP PO (09:30)
[2018-08-09] MEDS: DOCUSATE SODIUM 100 MG CAP PO ×2 (09:32→21:00)
[2018-08-09] MEDS: ASCORBIC ACID 500 MG TAB PO (09:32)
[2018-08-09] MEDS: AMLODIPINE 10 MG TAB PO (09:32)
[2018-08-09] MEDS: LISINOPRIL 10 MG TAB PO (09:33)
[2018-08-09] MEDS: FAMOTIDINE 20 MG TAB PO (09:33)
[2018-08-09] MEDS: FERROUS SULFATE (EC) 325 MG TAB PO (09:33)
[2018-08-09] MEDS: ASPIRIN 81 MG TAB PO (09:33)
[2018-08-09] MEDS: LABETALOL 100 MG TAB PO (09:33)
[2018-08-09] MEDS: FOLIC ACID 1 MG TAB PO (09:34)
[2018-08-09] MEDS: LACTOBACILLUS RHAMNOSUS CAP PO ×3 (09:34→22:36)
[2018-08-09] MEDS: NYSTATIN 30 GM POWDER BTL TOP ×2 (09:34→21:31)
[2018-08-09] MEDS: GABAPENTIN 300 MG CAP PO ×3 (09:42→21:21)
[2018-08-09] MEDS: LINAGLIPTIN 5 MG TABLET PO ×2 (09:42→10:24)
[2018-08-09] MEDS: SENNA TAB PO (21:00)
[2018-08-09] MEDS: oxyCODONE 5 MG TAB PO (21:20)
[2018-08-09] MEDS: ATORVASTATIN 40 MG TAB PO (21:20)
[2018-08-10] MEDS: ACCU-CHEK XX ×5 (02:00→21:00)
[2018-08-10] MEDS: HEPARIN 5,000 UNIT/1 ML VIAL SC ×3 (06:26→21:34)
[2018-08-10] MEDS: LABETALOL 200 MG TAB PO ×3 (06:26→21:39)
[2018-08-10] MEDS: HYDROmorphONE 0.5 MG/0.5 ML SYG IV ×3 (07:47→19:03)
[2018-08-10] MEDS: INSULIN ASPART [NOVOLOG] 3 ML PEN SC ×7 (07:54→21:00)
[2018-08-10] MEDS: INSULIN GLARGINE [LANTus] (100 UNITS/ML) SYG SC (07:56)
[2018-08-10] MEDS: LACTOBACILLUS RHAMNOSUS CAP PO ×3 (10:30→21:21)
[2018-08-10] MEDS: ASPIRIN 81 MG TAB PO (10:30)
[2018-08-10] MEDS: DOCUSATE SODIUM 100 MG CAP PO ×2 (10:30→21:00)
[2018-08-10] MEDS: GABAPENTIN 300 MG CAP PO ×3 (10:30→21:21)
[2018-08-10] MEDS: FERROUS SULFATE (EC) 325 MG TAB PO (10:30)
[2018-08-10] MEDS: AMLODIPINE 10 MG TAB PO (10:31)
[2018-08-10] MEDS: FAMOTIDINE 20 MG TAB PO (10:31)
[2018-08-10] MEDS: FOLIC ACID 1 MG TAB PO (10:31)
[2018-08-10] MEDS: ASCORBIC ACID 500 MG TAB PO (10:37)
[2018-08-10] MEDS: LISINOPRIL 10 MG TAB PO (10:37)
[2018-08-10] MEDS: ACETAMINOPHEN 325 MG TAB PO (10:38)
[2018-08-10] MEDS: NYSTATIN 30 GM POWDER BTL TOP ×2 (10:39→21:22)
[2018-08-10] MEDS: SENNA TAB PO (21:00)
[2018-08-10] MEDS: ATORVASTATIN 40 MG TAB PO (21:21)
[2018-08-11] MEDS: DIPHENHYDRAMINE 25 MG CAP PO ×2 (01:21→21:33)
[2018-08-11] MEDS: ACCU-CHEK XX ×5 (02:00→21:00)
[2018-08-11] MEDS: ACETAMINOPHEN 325 MG TAB PO ×2 (04:18→21:33)
[2018-08-11] MEDS: LABETALOL 200 MG TAB PO ×3 (06:13→22:33)
[2018-08-11] MEDS: HEPARIN 5,000 UNIT/1 ML VIAL SC ×3 (06:15→22:33)
[2018-08-11] MEDS: INSULIN ASPART [NOVOLOG] 3 ML PEN SC ×7 (08:09→21:00)
[2018-08-11] MEDS: INSULIN GLARGINE [LANTus] (100 UNITS/ML) SYG SC (08:11)
[2018-08-11] MEDS: LINAGLIPTIN 5 MG TABLET PO (08:11)
[2018-08-11] MEDS: LACTOBACILLUS RHAMNOSUS CAP PO ×3 (09:56→21:33)
[2018-08-11] MEDS: ASPIRIN 81 MG TAB PO (09:57)
[2018-08-11] MEDS: GABAPENTIN 300 MG CAP PO ×3 (09:57→21:34)
[2018-08-11] MEDS: FAMOTIDINE 20 MG TAB PO (09:57)
[2018-08-11] MEDS: DOCUSATE SODIUM 100 MG CAP PO ×2 (09:57→21:00)
[2018-08-11] MEDS: FERROUS SULFATE (EC) 325 MG TAB PO (09:57)
[2018-08-11] MEDS: ASCORBIC ACID 500 MG TAB PO (09:57)
[2018-08-11] MEDS: LISINOPRIL 10 MG TAB PO (09:58)
[2018-08-11] MEDS: NYSTATIN 30 GM POWDER BTL TOP ×2 (09:58→21:35)
[2018-08-11] MEDS: AMLODIPINE 10 MG TAB PO (09:58)
[2018-08-11] MEDS: FOLIC ACID 1 MG TAB PO (11:45)
[2018-08-11] MEDS: SENNA TAB PO (21:00)
[2018-08-11] MEDS: ATORVASTATIN 40 MG TAB PO (21:34)
[2018-08-12] MEDS: ACCU-CHEK XX ×5 (02:00→21:17)
[2018-08-12] MEDS: LABETALOL 200 MG TAB PO ×3 (05:39→21:48)
[2018-08-12] MEDS: HEPARIN 5,000 UNIT/1 ML VIAL SC ×3 (05:41→21:44)
[2018-08-12] MEDS: HYDROmorphONE 0.5 MG/0.5 ML SYG IV ×3 (07:41→14:47)
[2018-08-12] MEDS: INSULIN ASPART [NOVOLOG] 3 ML PEN SC ×7 (07:44→21:00)
[2018-08-12] MEDS: INSULIN GLARGINE [LANTus] (100 UNITS/ML) SYG SC (07:45)
[2018-08-12] MEDS: DOCUSATE SODIUM 100 MG CAP PO ×3 (09:00→20:26)
[2018-08-12] MEDS: FERROUS SULFATE (EC) 325 MG TAB PO (09:45)
[2018-08-12] MEDS: LINAGLIPTIN 5 MG TABLET PO (09:45)
[2018-08-12] MEDS: ASPIRIN 81 MG TAB PO (09:45)
[2018-08-12] MEDS: GABAPENTIN 300 MG CAP PO ×3 (09:45→20:23)
[2018-08-12] MEDS: LACTOBACILLUS RHAMNOSUS CAP PO ×3 (09:45→20:22)
[2018-08-12] MEDS: FOLIC ACID 1 MG TAB PO (09:46)
[2018-08-12] MEDS: LISINOPRIL 10 MG TAB PO (09:47)
[2018-08-12] MEDS: NYSTATIN 30 GM POWDER BTL TOP ×2 (09:48→20:25)
[2018-08-12] MEDS: ASCORBIC ACID 500 MG TAB PO (09:49)
[2018-08-12] MEDS: AMLODIPINE 10 MG TAB PO (09:53)
[2018-08-12] MEDS: FAMOTIDINE 20 MG TAB PO (09:53)
[2018-08-12] MEDS: ACETAMINOPHEN 325 MG TAB PO (19:36)
[2018-08-12] MEDS: ATORVASTATIN 40 MG TAB PO (20:23)
[2018-08-12] MEDS: SENNA TAB PO (20:26)
[2018-08-13] MEDS: ACCU-CHEK XX ×5 (02:00→21:00)
[2018-08-13] MEDS: HEPARIN 5,000 UNIT/1 ML VIAL SC ×3 (05:55→21:17)
[2018-08-13] MEDS: LABETALOL 200 MG TAB PO ×3 (05:57→21:16)
[2018-08-13 06:40] LABS: ADD MAN DIFF? NO
[2018-08-13 06:55] LABS: BASOPHILS % 0.6 % (0.0-2.0); EOSINOPHILS # 0.8 10^3/ul (0.0-0.5); EOSINOPHILS % 11.8 % (0.0-7.0); HEMATOCRIT 34.5 % (37.0-47.0); HEMOGLOBIN 10.3 g/dl (12.0-16.0); LYMPHOCYTES # 1.6 10^3/ul (0.8-2.9); LYMPHOCYTES % 24.4 % (15.0-51.0); MEAN CORPUSCULAR HEMOGLOBIN 28.8 pg (29.0-33.0); MEAN CORPUSCULAR HGB CONC 29.9 g/dl (32.0-37.0); MEAN CORPUSCULAR VOLUME 96.4 fl (82.0-101.0); MONOCYTE # 0.7 10^3/ul (0.3-0.9); MONOCYTES % 10.2 % (0.0-11.0); NEUTROPHIL # 3.4 10^3/ul (1.6-7.5); NEUTROPHILS % 52.7 % (39.0-77.0); PLATELET COUNT 280 10^3/UL (140-415); RED BLOOD COUNT 3.58 10^6/ul (4.20-5.40); RED CELL DISTRIBUTION WIDTH 15.2 % (11.5-14.5)
[2018-08-13 06:55] LABS: WHITE BLOOD COUNT 6.4 10^3/ul (4.8-10.8)
[2018-08-13 07:28] LABS: ANION GAP 9 (5-13); BLOOD UREA NITROGEN 32 mg/dl (7-20); CALCIUM 8.8 mg/dl (8.4-10.2); CARBON DIOXIDE 27 mmol/L (21-31); CHLORIDE 106 mmol/L (97-110); CREATININE 1.85 mg/dl (0.44-1.00); Estimated GFR 28 mL/min (>60); GLUCOSE 163 mg/dl (70-220); MAGNESIUM 2.1 mg/dl (1.7-2.5); PHOSPHORUS 5.2 mg/dl (2.5-4.9); POTASSIUM 4.5 mmol/L (3.5-5.1); SODIUM 142 mmol/L (135-144)
[2018-08-13] MEDS: INSULIN ASPART [NOVOLOG] 3 ML PEN SC ×7 (07:49→21:00)
[2018-08-13] MEDS: LACTOBACILLUS RHAMNOSUS CAP PO ×3 (07:50→21:09)
[2018-08-13] MEDS: INSULIN GLARGINE [LANTus] (100 UNITS/ML) SYG SC (07:54)
[2018-08-13] MEDS: LINAGLIPTIN 5 MG TABLET PO (08:11)
[2018-08-13] MEDS: HYDROmorphONE 0.5 MG/0.5 ML SYG IV ×4 (08:12→19:42)
[2018-08-13] MEDS: ASCORBIC ACID 500 MG TAB PO (09:11)
[2018-08-13] MEDS: ASPIRIN 81 MG TAB PO (09:11)
[2018-08-13] MEDS: GABAPENTIN 300 MG CAP PO ×3 (09:11→21:08)
[2018-08-13] MEDS: DOCUSATE SODIUM 100 MG CAP PO ×2 (09:11→21:09)
[2018-08-13] MEDS: FOLIC ACID 1 MG TAB PO (09:11)
[2018-08-13] MEDS: FAMOTIDINE 20 MG TAB PO (09:11)
[2018-08-13] MEDS: FERROUS SULFATE (EC) 325 MG TAB PO (09:12)
[2018-08-13] MEDS: AMLODIPINE 10 MG TAB PO (09:12)
[2018-08-13] MEDS: NYSTATIN 30 GM POWDER BTL TOP ×2 (09:13→21:10)
[2018-08-13] MEDS: ATORVASTATIN 40 MG TAB PO (21:08)
[2018-08-13] MEDS: SENNA TAB PO (21:09)
[2018-08-14] MEDS: ACCU-CHEK XX ×5 (02:00→20:53)
[2018-08-14] MEDS: HEPARIN 5,000 UNIT/1 ML VIAL SC ×3 (06:05→21:08)
[2018-08-14] MEDS: LABETALOL 200 MG TAB PO ×3 (06:06→20:58)
[2018-08-14] MEDS: INSULIN ASPART [NOVOLOG] 3 ML PEN SC ×7 (08:12→20:53)
[2018-08-14] MEDS: INSULIN GLARGINE [LANTus] (100 UNITS/ML) SYG SC (08:27)
[2018-08-14] MEDS: AL HYDROX/MG HYDROX/SIMETH 30 ML CUP PO (08:48)
[2018-08-14] MEDS: FAMOTIDINE 20 MG TAB PO (08:49)
[2018-08-14] MEDS: LINAGLIPTIN 5 MG TABLET PO (08:49)
[2018-08-14] MEDS: DOCUSATE SODIUM 100 MG CAP PO ×2 (09:00→20:52)
[2018-08-14] MEDS: FERROUS SULFATE (EC) 325 MG TAB PO (10:15)
[2018-08-14] MEDS: GABAPENTIN 300 MG CAP PO ×3 (10:15→20:52)
[2018-08-14] MEDS: ASPIRIN 81 MG TAB PO (10:16)
[2018-08-14] MEDS: AMLODIPINE 10 MG TAB PO (10:16)
[2018-08-14] MEDS: FOLIC ACID 1 MG TAB PO (10:16)
[2018-08-14] MEDS: ASCORBIC ACID 500 MG TAB PO (10:16)
[2018-08-14] MEDS: NYSTATIN 30 GM POWDER BTL TOP ×2 (10:16→20:54)
[2018-08-14] MEDS: LACTOBACILLUS RHAMNOSUS CAP PO ×3 (10:21→20:52)
[2018-08-14] MEDS: ERGOCALCIFEROL 50,000 UNIT CAP PO (10:21)
[2018-08-14 11:36] LABS: ANION GAP 6 (5-13); BLOOD UREA NITROGEN 36 mg/dl (7-20); CALCIUM 9.5 mg/dl (8.4-10.2); CARBON DIOXIDE 29 mmol/L (21-31); CHLORIDE 108 mmol/L (97-110); Estimated GFR 29 mL/min (>60); GLUCOSE 193 mg/dl (70-220); SODIUM 143 mmol/L (135-144)
[2018-08-14 11:44] LABS: POTASSIUM 5.6 mmol/L (3.5-5.1)
[2018-08-14] MEDS: SENNA TAB PO (20:52)
[2018-08-14] MEDS: ATORVASTATIN 40 MG TAB PO (20:52)
[2018-08-15] MEDS: ACCU-CHEK XX ×5 (02:00→20:56)
[2018-08-15] MEDS: HEPARIN 5,000 UNIT/1 ML VIAL SC ×3 (06:15→21:11)
[2018-08-15] MEDS: LABETALOL 200 MG TAB PO ×3 (06:15→20:59)
[2018-08-15] MEDS: INSULIN ASPART [NOVOLOG] 3 ML PEN SC ×7 (07:55→20:56)
[2018-08-15] MEDS: INSULIN GLARGINE [LANTus] (100 UNITS/ML) SYG SC (07:57)
[2018-08-15] MEDS: DOCUSATE SODIUM 100 MG CAP PO ×2 (09:00→21:00)
[2018-08-15 09:20] LABS: ANION GAP 10 (5-13); BLOOD UREA NITROGEN 36 mg/dl (7-20); CALCIUM 9.3 mg/dl (8.4-10.2); CARBON DIOXIDE 27 mmol/L (21-31); CHLORIDE 106 mmol/L (97-110); CREATININE 1.85 mg/dl (0.44-1.00); Estimated GFR 28 mL/min (>60); GLUCOSE 160 mg/dl (70-220); MAGNESIUM 2.2 mg/dl (1.7-2.5); POTASSIUM 5.1 mmol/L (3.5-5.1); SODIUM 143 mmol/L (135-144)
[2018-08-15] MEDS: FOLIC ACID 1 MG TAB PO (09:26)
[2018-08-15] MEDS: AMLODIPINE 10 MG TAB PO (09:26)
[2018-08-15] MEDS: FERROUS SULFATE (EC) 325 MG TAB PO (09:27)
[2018-08-15] MEDS: GABAPENTIN 300 MG CAP PO ×3 (09:27→20:59)
[2018-08-15] MEDS: LACTOBACILLUS RHAMNOSUS CAP PO ×3 (09:27→20:59)
[2018-08-15] MEDS: FAMOTIDINE 20 MG TAB PO (09:27)
[2018-08-15] MEDS: LINAGLIPTIN 5 MG TABLET PO (09:27)
[2018-08-15] MEDS: ASCORBIC ACID 500 MG TAB PO (09:27)
[2018-08-15] MEDS: NYSTATIN 30 GM POWDER BTL TOP ×2 (09:28→21:00)
[2018-08-15] MEDS: ASPIRIN 81 MG TAB PO (09:28)
[2018-08-15] MEDS: GLUCOSE GEL 15 GRAM TUBE PO (16:39)
[2018-08-15] MEDS: ATORVASTATIN 40 MG TAB PO (20:59)
[2018-08-15] MEDS: SENNA TAB PO (21:00)
[2018-08-16] MEDS: ACCU-CHEK XX ×5 (02:30→21:38)
[2018-08-16] MEDS: LABETALOL 200 MG TAB PO ×2 (06:34→21:11)
[2018-08-16] MEDS: HEPARIN 5,000 UNIT/1 ML VIAL SC ×3 (06:35→22:11)
[2018-08-16 07:39] LABS: ADD MAN DIFF? NO
[2018-08-16 07:41] LABS: BASOPHILS % 0.6 % (0.0-2.0); EOSINOPHILS # 0.6 10^3/ul (0.0-0.5); EOSINOPHILS % 8.2 % (0.0-7.0); HEMATOCRIT 34.6 % (37.0-47.0); HEMOGLOBIN 10.3 g/dl (12.0-16.0); LYMPHOCYTES # 1.5 10^3/ul (0.8-2.9); LYMPHOCYTES % 22.5 % (15.0-51.0); MEAN CORPUSCULAR HEMOGLOBIN 28.9 pg (29.0-33.0); MEAN CORPUSCULAR HGB CONC 29.8 g/dl (32.0-37.0); MEAN CORPUSCULAR VOLUME 97.2 fl (82.0-101.0); MEAN PLATELET VOLUME 11.1 fl (7.4-10.4); MONOCYTE # 0.5 10^3/ul (0.3-0.9); MONOCYTES % 8.1 % (0.0-11.0); NEUTROPHILS % 59.9 % (39.0-77.0); PLATELET COUNT 281 10^3/UL (140-415); RED BLOOD COUNT 3.56 10^6/ul (4.20-5.40)
[2018-08-16 07:41] LABS: WHITE BLOOD COUNT 6.7 10^3/ul (4.8-10.8)
[2018-08-16] MEDS: INSULIN GLARGINE [LANTus] (100 UNITS/ML) SYG SC (07:57)
[2018-08-16] MEDS: INSULIN ASPART [NOVOLOG] 3 ML PEN SC ×7 (07:59→21:00)
[2018-08-16 08:16] LABS: ANION GAP 7 (5-13); BLOOD UREA NITROGEN 43 mg/dl (7-20); CARBON DIOXIDE 25 mmol/L (21-31); CHLORIDE 109 mmol/L (97-110); CREATININE 1.91 mg/dl (0.44-1.00); Estimated GFR 27 mL/min (>60); GLUCOSE 316 mg/dl (70-220); MAGNESIUM 2.1 mg/dl (1.7-2.5); PHOSPHORUS 5.8 mg/dl (2.5-4.9); POTASSIUM 5.3 mmol/L (3.5-5.1); SODIUM 141 mmol/L (135-144)
[2018-08-16] MEDS: DOCUSATE SODIUM 100 MG CAP PO ×2 (09:00→21:00)
[2018-08-16] MEDS: AMLODIPINE 10 MG TAB PO (09:00)
[2018-08-16] MEDS: ASCORBIC ACID 500 MG TAB PO (10:01)
[2018-08-16] MEDS: LINAGLIPTIN 5 MG TABLET PO (10:01)
[2018-08-16] MEDS: ASPIRIN 81 MG TAB PO (10:01)
[2018-08-16] MEDS: GABAPENTIN 300 MG CAP PO ×3 (10:02→21:11)
[2018-08-16] MEDS: LACTOBACILLUS RHAMNOSUS CAP PO ×3 (10:02→21:12)
[2018-08-16] MEDS: FAMOTIDINE 20 MG TAB PO (10:02)
[2018-08-16] MEDS: FERROUS SULFATE (EC) 325 MG TAB PO (10:02)
[2018-08-16] MEDS: NYSTATIN 30 GM POWDER BTL TOP ×2 (10:03→21:12)
[2018-08-16] MEDS: FOLIC ACID 1 MG TAB PO (10:03)
[2018-08-16] MEDS: SOD CHLORIDE 0.9% 1,000 ML IV (14:01)
[2018-08-16] MEDS: SENNA TAB PO (21:00)
[2018-08-16] MEDS: ATORVASTATIN 40 MG TAB PO (21:11)
[2018-08-17] MEDS: ACCU-CHEK XX ×5 (02:00→21:00)
[2018-08-17] MEDS: SOD CHLORIDE 0.9% 1,000 ML IV (02:45)
[2018-08-17] MEDS: HEPARIN 5,000 UNIT/1 ML VIAL SC ×3 (06:51→21:41)
[2018-08-17] MEDS: INSULIN ASPART [NOVOLOG] 3 ML PEN SC ×7 (07:51→21:00)
[2018-08-17] MEDS: HYDROmorphONE 0.5 MG/0.5 ML SYG IV ×4 (07:54→19:29)
[2018-08-17] MEDS: INSULIN GLARGINE [LANTus] (100 UNITS/ML) SYG SC (08:12)
[2018-08-17 08:40] LABS: ADD MAN DIFF? NO
[2018-08-17 08:42] LABS: WHITE BLOOD COUNT 7.4 10^3/ul (4.8-10.8)
[2018-08-17 08:42] LABS: BASOPHILS % 0.4 % (0.0-2.0); EOSINOPHILS # 0.7 10^3/ul (0.0-0.5); HEMATOCRIT 33.6 % (37.0-47.0); HEMOGLOBIN 9.9 g/dl (12.0-16.0); LYMPHOCYTES % 26.6 % (15.0-51.0); MEAN CORPUSCULAR HEMOGLOBIN 28.9 pg (29.0-33.0); MEAN CORPUSCULAR HGB CONC 29.5 g/dl (32.0-37.0); MEAN CORPUSCULAR VOLUME 98.2 fl (82.0-101.0); MEAN PLATELET VOLUME 11.5 fl (7.4-10.4); MONOCYTE # 0.6 10^3/ul (0.3-0.9); MONOCYTES % 8.1 % (0.0-11.0); NEUTROPHIL # 4.1 10^3/ul (1.6-7.5); NEUTROPHILS % 55.5 % (39.0-77.0); PLATELET COUNT 280 10^3/UL (140-415); RED BLOOD COUNT 3.42 10^6/ul (4.20-5.40); RED CELL DISTRIBUTION WIDTH 15.3 % (11.5-14.5)
[2018-08-17] MEDS: GABAPENTIN 300 MG CAP PO ×3 (08:56→21:35)
[2018-08-17] MEDS: LACTOBACILLUS RHAMNOSUS CAP PO ×3 (08:56→21:34)
[2018-08-17] MEDS: ASCORBIC ACID 500 MG TAB PO (08:57)
[2018-08-17] MEDS: DOCUSATE SODIUM 100 MG CAP PO ×2 (08:57→21:35)
[2018-08-17] MEDS: LINAGLIPTIN 5 MG TABLET PO (08:57)
[2018-08-17] MEDS: LABETALOL 200 MG TAB PO ×2 (08:57→21:35)
[2018-08-17] MEDS: FOLIC ACID 1 MG TAB PO (08:57)
[2018-08-17] MEDS: FERROUS SULFATE (EC) 325 MG TAB PO (08:58)
[2018-08-17] MEDS: FAMOTIDINE 20 MG TAB PO (08:59)
[2018-08-17] MEDS: NYSTATIN 30 GM POWDER BTL TOP ×2 (08:59→21:35)
[2018-08-17] MEDS: ASPIRIN 81 MG TAB PO (09:02)
[2018-08-17 09:03] LABS: ANION GAP 7 (5-13); BLOOD UREA NITROGEN 41 mg/dl (7-20); CALCIUM 9.1 mg/dl (8.4-10.2); CARBON DIOXIDE 22 mmol/L (21-31); CHLORIDE 114 mmol/L (97-110); CREATININE 1.64 mg/dl (0.44-1.00); Estimated GFR 32 mL/min (>60); GLUCOSE 202 mg/dl (70-220); MAGNESIUM 2.1 mg/dl (1.7-2.5); PHOSPHORUS 5.7 mg/dl (2.5-4.9); POTASSIUM 5.4 mmol/L (3.5-5.1); SODIUM 143 mmol/L (135-144)
[2018-08-17] MEDS: ATORVASTATIN 40 MG TAB PO (21:34)
[2018-08-17] MEDS: SENNA TAB PO (21:35)
[2018-08-18] MEDS: ACCU-CHEK XX ×5 (02:00→21:00)
[2018-08-18] MEDS: HEPARIN 5,000 UNIT/1 ML VIAL SC ×3 (06:44→22:06)
[2018-08-18 07:46] LABS: ANION GAP 9 (5-13); BLOOD UREA NITROGEN 30 mg/dl (7-20); CALCIUM 9.3 mg/dl (8.4-10.2); CARBON DIOXIDE 22 mmol/L (21-31); CHLORIDE 113 mmol/L (97-110); CREATININE 1.44 mg/dl (0.44-1.00); Estimated GFR 37 mL/min (>60); GLUCOSE 183 mg/dl (70-220); SODIUM 144 mmol/L (135-144)
[2018-08-18] MEDS: INSULIN ASPART [NOVOLOG] 3 ML PEN SC ×7 (07:53→21:00)
[2018-08-18] MEDS: HYDROmorphONE 0.5 MG/0.5 ML SYG IV ×4 (07:55→19:10)
[2018-08-18] MEDS: ASCORBIC ACID 500 MG TAB PO (08:17)
[2018-08-18] MEDS: DOCUSATE SODIUM 100 MG CAP PO ×2 (08:18→21:00)
[2018-08-18] MEDS: GABAPENTIN 300 MG CAP PO ×3 (08:18→22:10)
[2018-08-18] MEDS: FERROUS SULFATE (EC) 325 MG TAB PO (08:18)
[2018-08-18] MEDS: FOLIC ACID 1 MG TAB PO (08:18)
[2018-08-18] MEDS: LACTOBACILLUS RHAMNOSUS CAP PO ×3 (08:18→22:09)
[2018-08-18] MEDS: LABETALOL 200 MG TAB PO ×3 (08:18→22:09)
[2018-08-18] MEDS: ASPIRIN 81 MG TAB PO (08:18)
[2018-08-18] MEDS: AMLODIPINE 10 MG TAB PO (08:18)
[2018-08-18] MEDS: FAMOTIDINE 20 MG TAB PO (08:18)
[2018-08-18] MEDS: LINAGLIPTIN 5 MG TABLET PO (09:37)
[2018-08-18] MEDS: INSULIN GLARGINE [LANTus] (100 UNITS/ML) SYG SC (09:37)
[2018-08-18] MEDS: NYSTATIN 30 GM POWDER BTL TOP ×2 (09:39→22:08)
[2018-08-18] MEDS: SENNA TAB PO (21:00)
[2018-08-18] MEDS: ATORVASTATIN 40 MG TAB PO (22:08)
[2018-08-19] MEDS: ACCU-CHEK XX ×4 (02:00→17:38)
[2018-08-19] MEDS: HEPARIN 5,000 UNIT/1 ML VIAL SC ×2 (06:00→08:36)
[2018-08-19] MEDS: LABETALOL 200 MG TAB PO ×2 (06:00→14:00)
[2018-08-19] MEDS: INSULIN ASPART [NOVOLOG] 3 ML PEN SC ×6 (07:50→17:40)
[2018-08-19] MEDS: INSULIN GLARGINE [LANTus] (100 UNITS/ML) SYG SC (07:51)
[2018-08-19] MEDS: LINAGLIPTIN 5 MG TABLET PO (08:30)
[2018-08-19] MEDS: GABAPENTIN 300 MG CAP PO ×3 (08:30→20:21)
[2018-08-19] MEDS: ASPIRIN 81 MG TAB PO (08:31)
[2018-08-19] MEDS: ASCORBIC ACID 500 MG TAB PO (08:31)
[2018-08-19] MEDS: FOLIC ACID 1 MG TAB PO (08:31)
[2018-08-19] MEDS: AMLODIPINE 10 MG TAB PO (08:31)
[2018-08-19] MEDS: FERROUS SULFATE (EC) 325 MG TAB PO (08:32)
[2018-08-19] MEDS: FAMOTIDINE 20 MG TAB PO (08:32)
[2018-08-19] MEDS: LACTOBACILLUS RHAMNOSUS CAP PO ×3 (08:32→20:21)
[2018-08-19] MEDS: DOCUSATE SODIUM 100 MG CAP PO (08:39)
[2018-08-19] MEDS: NYSTATIN 30 GM POWDER BTL TOP (09:00)
[2018-08-19] MEDS: ATORVASTATIN 40 MG TAB PO (20:21)
== END 2018-08-19 20:25 | disposition home health service (06) | DRG 560 ==
LOC: VRC 20:54
PROC: F07Z5ZZ Bed Mobility Treatment (ICD-10-PCS; principal; 2018-08-04)
PROC: F07Z8ZZ Transfer Training Treatment (ICD-10-PCS; 2018-08-04)
PROC: F07Z4ZZ Wheelchair Mobility Treatment (ICD-10-PCS; 2018-08-04)
PROC: F08Z2ZZ Grooming/Personal Hygiene Treatment (ICD-10-PCS; 2018-08-04)
PROC: F08Z1ZZ Dressing Techniques Treatment (ICD-10-PCS; 2018-08-04)
PROC: F08Z0ZZ Bathing/Showering Techniques Treatment (ICD-10-PCS; 2018-08-04)
DX: Z47.81 Encounter for orthopedic aftercare following surgical amputation (principal); M86.9 Osteomyelitis, unspecified; N17.9 Acute kidney failure, unspecified; Z68.41 Body mass index [BMI] 40.0-44.9, adult; Z89.511 Acquired absence of right leg below knee; E11.22 Type 2 diabetes mellitus with diabetic chronic kidney disease; E11.40 Type 2 diabetes mellitus with diabetic neuropathy, unspecified; E11.69 Type 2 diabetes mellitus with other specified complication; E11.65 Type 2 diabetes mellitus with hyperglycemia; E11.51 Type 2 diabetes mellitus with diabetic peripheral angiopathy without gangrene; E83.51 Hypocalcemia; E78.5 Hyperlipidemia, unspecified; E66.9 Obesity, unspecified; F06.31 Mood disorder due to known physiological condition with depressive features; D63.1 Anemia in chronic kidney disease; F41.9 Anxiety disorder, unspecified; G89.4 Chronic pain syndrome; I12.9 Hypertensive chronic kidney disease with stage 1 through stage 4 chronic kidney disease, or unspecified chronic kidney disease; N18.3 Chronic kidney disease, stage 3 (moderate); Z74.09 Other reduced mobility; Z79.4 Long term (current) use of insulin
CPT/HCPCS: 80048; 80053; 81001; 82962; 83036; 83735; 84100; 85025; 87075; 87081; 87086; 92507; 92610; 97110; 97112; 97140; 97150; 97163; 97167; 97530; 97535; 97542